=== PATIENT | female | born 1960 | race Caucasian/White ===

== ENCOUNTER → 2016-12-18 | Outpatient (CLI) | payer OTHER | END | disposition home or self-care (01) | LOC: PTH.S 12-06 10:15 | DX: E11.9 Type 2 diabetes mellitus without complications (principal) ==

== ENCOUNTER 2017-03-08 09:18 | Emergency (ER) | payer SELFPAY ==
--- NOTE | 2017-03-11 08:22 | ER ---
ADMIT: 03/08/2017 RM/LOC: ER [facility] MR#: [id number] [facility] [address] [place], [place] [id number] ADRIENNE MCKEON [address] [place], [place] [id number] Emergency Room Report SEX: F AGE: 56 : 1960 DATE: 03/08/2017 TIME: 0918 hours. Please refer to my T-sheet for complete H and P. HISTORY OF PRESENT ILLNESS: Briefly, the patient is a 56-year-old, who was sent over from [facility] for left facial droop. It started yesterday. She states that she has kind of a headache and some sinus pressure, and now her left side of her face is not working. She does have a history of diabetes, high blood pressure. She has a little bit anxious. She has never had a stroke in the past. She takes her aspirin every day. PHYSICAL EXAMINATION: VITAL SIGNS: Her blood pressure was elevated. She was slightly anxious 203/86, pulse 82, respirations 18, temp 97.1, sat 96%. GENERAL: She is in no acute distress. HEENT: Head reveals a left facial droop with forehead involvement. Nose clear. TMs clear. Throat clear. NECK: Soft, supple. No meningismus. LUNGS: Clear. HEART: Regular. ABDOMEN: Soft. SKIN: No rash. NEURO: She has a left facial droop, but no other neurological findings. EMERGENCY DEPARTMENT COURSE: CT scan of her brain revealed left sphenoid sinusitis, otherwise negative. She had been given Ativan 1 mg p.o. blood pressure, and improved to the 170s. I then gave her acyclovir 800 p.o., prednisone 20 p.o., Amoxil 500 p.o., and she is ready for discharge. ASSESSMENT: 1. Left-sided Hobbs's palsy. 2. Left sphenoid sinusitis seen on CT scan. I had a long discussion and she is ready for discharge. PLAN: Amoxil 500 t.i.d., for 7 days, I gave her 21. Acyclovir 800 five times a day for 7 days, I gave her 35. Prednisone 20 a day for 7 days. Lacri-Lube taper. I want her to follow up with ears, nose, and throat next week. Ron Connor MD/ sukumar JOB #: [id number] CC: Ron Connor MD, Attending Physician UNKNOWN, Family Physician
== END 2017-03-08 10:35 | disposition home or self-care (01) ==
LOC: ER 09:18
DX: G51.0 Bell's palsy (principal); J32.3 Chronic sphenoidal sinusitis; E11.9 Type 2 diabetes mellitus without complications; I10 Essential (primary) hypertension; Z79.4 Long term (current) use of insulin; Z79.82 Long term (current) use of aspirin; Z79.899 Other long term (current) drug therapy

== ENCOUNTER → 2017-03-29 | Outpatient (CLI) | payer OTHER | END | disposition home or self-care (01) | LOC: RAD.S 15:24 | DX: I82.402 Acute embolism and thrombosis of unspecified deep veins of left lower extremity (principal); E11.9 Type 2 diabetes mellitus without complications; I10 Essential (primary) hypertension ==